=== PATIENT | male | born 1990 | race Caucasian/White ===

== ENCOUNTER 2016-11-05 17:32 | Observation (INO) ==
[2016-11-05 18:03] LABS: URINE CULTURE NEEDED? NO; URINE MICRO REVIEW NEEDED? NO; URINE SOURCE CLEAN CATCH
[2016-11-05 18:07] LABS: BILIRUBIN URINE NEGATIVE (NEGATIVE); BLOOD URINE NEGATIVE (NEGATIVE); COLOR YELLOW; GLUCOSE URINE NEGATIVE (NEGATIVE); LEUKOCYTES URINE NEGATIVE (NEGATIVE); NITRITE URINE NEGATIVE (NEGATIVE); PH URINE 6.5; PROTEIN URINE TRACE mg/dL (NEGATIVE); SP GRAVITY URINE 1.026; TURBIDITY URINE CLEAR (CLEAR); UROBILINOGEN URINE 2 mg/dL (NORMAL)
[2016-11-05 18:08] LABS: UR EPITHELIAL CELLS <10 /HPF (<10); URINE BACTERIA NEGATIVE /HPF; URINE RBC <10 /HPF (<10); URINE WBC <10 /HPF (<10)
[2016-11-05 18:16] LABS: MANUAL DIFF NEEDED? NO
[2016-11-05 18:23] LABS: BASO% 0.2 % (0.0-0.8); EOS# 0.13 X1000 (0.0-0.7); EOS% 1.5 % (0.0-10.0); HEMATOCRIT 46.7 % (42.0-52.0); HEMOGLOBIN 15.7 g/dL (14.0-18.0); IMM GRAN# 0.02 X1000 (0.0-0.04); IMM GRAN% 0.2 % (0.0-0.5); LYMPH# 1.85 X1000 (1.2-3.4); LYMPH% 21.3 % (20.5-51.1); MCH 28.4 PG (27-31); MCHC 33.6 g/dL (33-37); MCV 84.6 FL (81-99); MONO# 0.58 X1000 (0.11-0.59); MONO% 6.7 % (1.7-9.3); MPV 12.1 FL (7.4-10.4); NEUT% 70.1 % (42.2-75.2); PLT 174 X1000 (130-400); RBC 5.52 XMIL (4.7-6.1)
[2016-11-05 18:32] LABS: UR AMPHETAMINES QUAL NONE DETECTED (NONE DETECT); UR BARBITUATES QUAL NONE DETECTED (NONE DETECT); UR BENZODIAZEPIN QUAL NONE DETECTED (NONE DETECT); UR CANNABINOIDS QUAL PRESUMPTIVE POSITIVE (NONE DETECT); UR COCAINE QUAL NONE DETECTED (NONE DETECT); UR METHADONE QUAL NONE DETECTED (NONE DETECT); UR OPIATES QUAL NONE DETECTED (NONE DETECT); UR OXYCODONE QUAL NONE DETECTED (NONE DETECT); UR PCP QUAL NONE DETECTED (NONE DETECT)
[2016-11-05 18:35] LABS: AGAP 12; ALBUMIN 4.1 g/dL (3.5-5.0); ALKALINE PHOSPHATASE 63 U/L (32-122); BUN 13 mg/dL (8-22); CALCIUM 9.1 mg/dL (8.8-10.2); CHLORIDE 102 mmol/L (98-107); COSMO 279; GOT 40 U/L (10-34); GPT 90 U/L (10-44); SODIUM 140 mmol/L (136-145); TCO2 26 mmol/L (25-35); TOTAL BILIRUBIN 0.42 mg/dL (0.20-1.00); TOTAL PROTEIN 7.4 g/dL (6.3-8.3)
--- NOTE | 2016-11-05 18:40 | Diag Imaging Result Doc PS360 ---
EXAM: CERVICAL SPINE W/O CONTRAST HISTORY: tried hanging himself TECHNIQUE: CT of the cervical spine COMMENT: There is no evidence of fracture or subluxation. No prevertebral soft tissue swelling is present. The facets are aligned. There is no evidence of spinal or foraminal stenosis. IMPRESSION: No evidence of acute bony disease. Electronically signed by Saturnino Walker 11/05/2016 6:37 PM
[2016-11-05 18:53] LABS: FREE T4 0.81 ng/dL (0.93-1.70)
[2016-11-05 19:26] LABS: ACETAMINOPHEN < 1.2 ug/mL (10-30)
--- NOTE | 2016-11-05 20:00 | PROVIDER DOCUMENTATION ---
This chart was entered by Bell Napoles Scribe, acting as scribe for Hemanth Sheldon CRNP. HPI-Psychological Disorder - General Chief Complaint: Suicide Attempt Stated Complaint: suicidal thoughts/attempt Time Seen by Provider: 11/05/16 17:51 Allergies/Adverse Reactions: Patient Allergies Allergy/AdvReac Type Severity Reaction Status Date / Time No Known Allergies Allergy Verified 11/05/16 19:33 Home Medications: Home Medication List Medication Instructions Recorded Confirmed Last Taken Type NK [No Home Medications] 11/05/16 11/05/16 Unknown History - History of Present Illness-Psych Nature of Presenting Problem: Pt is 26 y/o M presents to the ED via EMS with SI and SI attempt. Pt states tried to hang himself today and drank ortho home defense. Pt states recent family stress. Pt denies HI. Pt does have auditory and visual hallucinations since his step father . He sees and stalks to him on a daily basis. Onset/Duration: reports: just prior to arrival Timing: reports: still present Severity: reports: moderate Situational problems related to:: reports: spouse, parent Psychiatric Complaints: reports: depressed, suicidal ideation. denies: angry, agitated, altered mental status, anxiety, confused, frustrated, hallucinating, hostile, homicidal thoughts, impaired concentration, ingestion, injury, insomnia , irritability, paranoid, , rapid pulse, restlessness, tremor Substance Use: reports: denies Previous psych related hospitalizations?: No Patient arrived by:: EMS called by spouse/family Similar Symptoms Previously?: Yes Recently seen or treated by another doctor?: No - Suicidal Ideation Suicidal Attempt Method: reports: Hanging, Other (drank insecticide (Ortho Home Defense)) Review of Systems - Adult - REVIEW OF SYSTEMS - ADULT Constitutional: reports: see HPI. denies: chills, fever Eyes: denies: blurred vision, double vision, redness Ears, Nose, Mouth & Throat: denies: ear pain, nose pain, throat pain Cardiovascular: denies: chest pain, heart murmur, irregular heart rate Respiratory: denies: cough, shortness of breath, wheezing Gastrointestinal: denies: abdominal pain, diarrhea, nausea, vomiting Genitourinary: denies: dysuria, flank pain, hematuria Musculoskeletal: denies: back pain, joint pain, neck pain Integumentary: denies: hives, itching, rash Neurological: denies: dizziness/vertigo, headache/migraines, syncope Psychiatric: reports: depression, suicidal thoughts. denies: anxiety Endocrine: reports: no symptoms reported Hematologic/Lymphatic: reports: no symptoms reported Allergic/Immunologic: reports: no symptoms reported All Other Systems: Reviewed and Negative Past History - Adult - PAST MEDICAL HISTORY-ADULT Review of Records: reports: Old Records Reviewed, Nursing Assessment Review, Medications Reviewed, Social history reviewed & non-contributory. Major Childhood Illnesses: reports: denies history Cardiovascular: reports: denies history Respiratory: reports: denies history Gastrointestinal: reports: denies history Obstetrical/Gynecological: reports: denies history Genitourinary: reports: denies history Musculoskeletal: reports: denies history Neurological: reports: denies history Endocrine/Immune: reports: denies history Other Conditions: reports: denies history - PRIOR SURGERIES/PROCEDURES Surgical/Procedure History: reports: reviewed, not pertinent - IMMUNIZATION STATUS Childhood Immunizations: See Nurse Assessment Flu Vaccine: See Nurse Assessment - FAMILY HISTORY Family History: reviewed, not pertinent - SOCIAL HISTORY Smoking: denies Substance Use: marijuana Physical Exam-Psych Focus - Physical Exam-Psych Initial Vital Signs Reviewed: Yes Appearance: no apparent distress, alert. negative: disheveled, lethargic Neurological: calm, oriented x 3. negative: anxious, flat Behavior/Eye Contact/Speech: cooperative, good eye contact. negative: refused to answer, belligerent, compulsive, uncooperative Thoughts/Hallucinations: normal thought pattern, no apparent hallucination. negative: auditory hallucinations, tactile hallucinations, visual hallucinations HENMT: normocephalic/atraumatic, moist mucous membranes, normal ENT inspection. negative: dental decay, pharyngeal erythema Neck: non-tender, normal inspection. negative: lymphadenopathy, tender lateral Respiratory: chest non-tender, lungs clear, normal breath sounds. negative: crackles, rhonchi, increased rate Cardiovascular: normal peripheral pulses, regular rate, rhythm. negative: tachycardia, systolic murmur Abdominal Exam: normal bowel sounds, non tender, soft. negative: distended, rebound, hernia Lymphatic: no adenopathy. negative: enlargement, streaking Back Exam: normal inspection, no CVA tenderness, no vertebral tenderness. negative: ecchymosis, swelling Extremity: normal range of motion, normal inspection. negative: deformity, erythema, swelling Integumentary: normal color, normal turgor, warm/dry. negative: erythema, pallor, rash Progress - PLAN OF CARE/RESULTS Progress/Plan/Lab Results: Vital Signs - 8 hr 11/05/16 17:38 Temperature 98.1 F Pulse Rate 76 Respiratory Rate 18 Blood Pressure 141/78 O2 Sat by Pulse Oximetry 98 Laboratory Results - last 24 hr 11/05/16 11/05/16 11/05/16 17:56 17:56 18:03 WBC 8.70 RBC 5.52 Hgb 15.7 Hct 46.7 MCV 84.6 MCH 28.4 MCHC 33.6 RDW Std Deviation 13.7 Plt Count 174 MPV 12.1 H Immature Gran % (Auto) 0.2 Neut % (Auto) 70.1 Lymph % (Auto) 21.3 [place] % (Auto) 6.7 Eos % (Auto) 1.5 Baso % (Auto) 0.2 Immature Gran # (Auto) 0.02 Neut # (Auto) 6.10 Lymph # (Auto) 1.85 [place] # (Auto) 0.58 Eos # (Auto) 0.13 Baso # (Auto) 0.02 Sodium Potassium Chloride Carbon Dioxide Anion Gap BUN Creatinine Estimated GFR/1.73 m2 BUN/Creatinine Ratio Glucose Calculated Osmolality Calcium Total Bilirubin AST ALT Alkaline Phosphatase Total Protein Albumin Globulin Albumin/Globulin Ratio Vitamin B12 TSH Free T4 Urine Source CLEAN CATCH Urine Color YELLOW Urine Turbidity CLEAR Urine pH 6.5 Ur Specific Zenda 1.026 Urine Protein TRACE A Ur Glucose (Stick) NEGATIVE Ur Ketones (Stick) NEGATIVE Urine Blood NEGATIVE Urine Nitrite NEGATIVE Urine Bilirubin NEGATIVE Urobilinogen Dipstick 2 A Urine Leukocytes NEGATIVE Urine WBC (Auto) <10 Urine RBC (Auto) <10 U Epithel Cells (Auto) <10 Urine Bacteria (Auto) NEGATIVE Salicylates Urine Opiates Screen NONE DETECTED Ur Oxycodone Screen NONE DETECTED Ur Methadone, Qual NONE DETECTED Acetaminophen Ur Barbiturates Screen NONE DETECTED Ur Phencyclidine Scrn NONE DETECTED Ur Amphetamines Screen NONE DETECTED U Benzodiazepines Scrn NONE DETECTED Urine Cocaine Screen NONE DETECTED U Cannabinoids Screen PRESUMPTIVE POSITIVE A 11/05/16 11/05/16 11/05/16 18:03 18:03 18:22 WBC RBC Hgb Hct MCV MCH MCHC RDW Std Deviation Plt Count MPV Immature Gran % (Auto) Neut % (Auto) Lymph % (Auto) [place] % (Auto) Eos % (Auto) Baso % (Auto) Immature Gran # (Auto) Neut # (Auto) Lymph # (Auto) [place] # (Auto) Eos # (Auto) Baso # (Auto) Sodium 140 Potassium 4.0 Chloride 102 Carbon Dioxide 26 Anion Gap 12 BUN 13 Creatinine 0.9 Estimated GFR/1.73 m2 > 60 BUN/Creatinine Ratio 14 Glucose 98 Calculated Osmolality 279 Calcium 9.1 Total Bilirubin 0.42 AST 40 H ALT 90 H Alkaline Phosphatase 63 Total Protein 7.4 Albumin 4.1 Globulin 3.3 Albumin/Globulin Ratio 1.2 Vitamin B12 482 TSH 12.94 H Free T4 0.81 L Urine Source Urine Color Urine Turbidity Urine pH Ur Specific Zenda Urine Protein Ur Glucose (Stick) Ur Ketones (Stick) Urine Blood Urine Nitrite Urine Bilirubin Urobilinogen Dipstick Urine Leukocytes Urine WBC (Auto) Urine RBC (Auto) U Epithel Cells (Auto) Urine Bacteria (Auto) Salicylates < 3.00 L Urine Opiates Screen Ur Oxycodone Screen Ur Methadone, Qual Acetaminophen < 1.2 L Ur Barbiturates Screen Ur Phencyclidine Scrn Ur Amphetamines Screen U Benzodiazepines Scrn Urine Cocaine Screen U Cannabinoids Screen Orders Category Date Time Status IV Insertion ORDERED Care 11/05/16 18:09 Completed Nursing- Obtain EKG once Care 11/05/16 18:10 Active CERVICAL SPINE W/O CONTRAST [CT] Stat Exams 11/05/16 18:15 Completed ACETAMINOPHEN [TDM] Stat Lab 11/05/16 18:22 Completed ALCOHOL BLOOD Stat Lab 11/05/16 18:03 Received CBC WITH ELECTRONIC DIFF [HEME] Stat Lab 11/05/16 18:03 Completed COMPREHENSIVE METABOLIC PANEL [CHEM] Stat Lab 11/05/16 18:03 Completed FREE T4 Stat Lab 11/05/16 18:03 Completed SALICYLATES [TDM] Stat Lab 11/05/16 18:22 Completed TSH Stat Lab 11/05/16 18:03 Completed UA NIMS W/REFLEX CULT [URINALYSIS] Stat Lab 11/05/16 18:22 Ordered URINALYSIS W/POSS RFLX CULT-1 [URINALYSIS] Stat Lab 11/05/16 17:56 Completed URINE DRUG SCREEN Stat Lab 11/05/16 17:56 Completed URINE DRUG SCREEN Stat Lab 11/05/16 18:22 Ordered VITAMIN B12 Stat Lab 11/05/16 18:03 Completed Result Diagrams: 11/05/16 18:03 11/05/16 18:03 - CT/MRI 1 CT Study: Cervical Spine Impression: Normal (Per radiologist.) - CONSULTS/PCP/HOSPITALIST Notification #1 *Consult/PCP/Hospitalist*: Dr. Bridges Time Discussed: 18:31 Consult Disposition: Will see in ED, Admit Departure - Departure Date of Disposition Decision: 11/05/16 Time of Disposition Decision: 18:32 DIAGNOSIS: Suicidal ideations, Ingestion of corrosive chemical, Hallucinations, unspecified Disposition: ADMITTED INPATIENT 09 Certified Medical Emergency: Emergent Condition: Stable Referrals and Follow-Ups: None,PCP [Primary Care Provider] - - Critical Care Note This patient required my direct & personal management of CC.: No Attestation - Physician/ HERMILO Attestation Patient care was provided by Advanced Practice Provider:: Yes Advanced Practice Provider:: Hemanth Sheldon Advanced Practice Provider documentation review:: The Mid-level provider documentation, treatment plan and medical decision making was reviewed by the physician who agrees with all treatment and medical decision making by the MLP. The physician spent face to face time with patient:: Yes Advanced Practice Provider documentation review:: Supervising physician onsite and consulted in the evaluation and care of this patient. The physician did have a face to face encounter with the patient. This chart was documented by the indicated scribe, (Bell Napoles Scribe) and accurately reflects the services I performed and decisions made by me, Hemanth Sheldon CRNP, as attested by the provider's signature.
[2016-11-05] MEDS ORDERED: TYLENOL PO ONE (20:53)
[2016-11-05] MEDS ORDERED: TYLENOL PO PRN (22:35)
[2016-11-05] MEDS ORDERED: ZOFRAN PO PRN (22:35)
[2016-11-05] MEDS ORDERED: ZOFRAN ODT PO PRN (22:41)
[2016-11-05] MEDS: NS 1,000 ML IV SCH (23:25)
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
[2016-11-06 05:36] LABS: MANUAL DIFF NEEDED? NO
[2016-11-06 05:43] LABS: BASO% 0.7 % (0.0-0.8); EOS# 0.18 X1000 (0.0-0.7); EOS% 2.7 % (0.0-10.0); HEMATOCRIT 45.2 % (42.0-52.0); IMM GRAN# 0.02 X1000 (0.0-0.04); IMM GRAN% 0.3 % (0.0-0.5); LYMPH# 2.75 X1000 (1.2-3.4); MCH 28.7 PG (27-31); MCHC 33.2 g/dL (33-37); MCV 86.4 FL (81-99); MONO# 0.62 X1000 (0.11-0.59); MONO% 9.3 % (1.7-9.3); MPV 12.5 FL (7.4-10.4); PLT 152 X1000 (130-400); RBC 5.23 XMIL (4.7-6.1)
[2016-11-06 06:05] LABS: AGAP 11; ALBUMIN 4.1 g/dL (3.5-5.0); ALKALINE PHOSPHATASE 60 U/L (32-122); BUN 12 mg/dL (8-22); CALCIUM 8.8 mg/dL (8.8-10.2); CHLORIDE 105 mmol/L (98-107); COSMO 281; GOT 41 U/L (10-34); GPT 82 U/L (10-44); MAGNESIUM 1.9 mg/dL (1.5-2.7); POTASSIUM 3.7 mmol/L (3.5-5.1); SODIUM 141 mmol/L (136-145); TCO2 25 mmol/L (25-35); TOTAL BILIRUBIN 0.49 mg/dL (0.20-1.00)
--- NOTE | 2016-11-06 07:27 | EKG Report ---
Test Performed on : 11/06/2016 06:36:50 AM Test Reason : Ingestion, Suicide Attempt Blood Pressure : / mmHG Vent. Rate : 056 BPM Atrial Rate : 056 BPM P-R Int : 156 ms QRS Dur : 090 ms QT Int : 410 ms P-R-T Axes : 043 -03 025 degrees QTc Int : 395 ms Sinus bradycardia. with marked sinus arrhythmia. Otherwise normal ECG When compared with ECG of 05-NOV-2016 18:00, (Unconfirmed) No significant change was found Nonspecific T wave abnormality III Confirmed by Zain Sampson DO ([id number]) on 11/09/2016 7:04:47 AM
[2016-11-06] MEDS: NS 1,000 ML IV SCH ×2 (07:45→15:58)
--- NOTE | 2016-11-06 07:48 | EKG Report ---
Test Performed on : 11/05/2016 6:00:45 PM Test Reason : No Order in [employer] Blood Pressure : / mmHG Vent. Rate : 078 BPM Atrial Rate : 078 BPM P-R Int : 154 ms QRS Dur : 090 ms QT Int : 356 ms P-R-T Axes : 033 -13 019 degrees QTc Int : 405 ms Normal sinus rhythm. Cannot rule out Anterior infarct , age undetermined Abnormal ECG No previous ECGs available Unconfirmed Result
[2016-11-06] MEDS ORDERED: ZOVIRAX PO SCH (09:00)
[2016-11-06] MEDS: SYNTHROID PO SCH (12:17)
--- NOTE | 2016-11-06 12:19 | PROGRESS NOTE ---
DATE: 11/06/2016 SUBJECTIVE: This morning, Mr. Batista refers to be doing a lot better. According to him, he was extremely depressed and had a lot of issues going on in his mind and his life, so he thought this was the end of the road. He took about a glass of come about a glass of Ortho Narus Defense to kill himself. Yesterday I understand was hallucinating and being delusional. However, this morning he sustains very rational conversation and he says he is regretful and he does not plan to do that again. OBJECTIVE: Vital signs: Blood pressure is 119/77, pulse of 59, respirations 14 , temperature is 98.7 degrees. General: Mr. Batista is a 66-year-old male. He is in bed, does not seem to be in any remarkable distress. HEENT: Mucosa is pink and moist. Anicteric. Acyanotic. Neck: Supple. Chest: Good air entry bilateral. No crepitations. No rhonchi. Cardiovascular: Regular rate and rhythm. There are no murmurs, no rubs, no gallops. Abdomen: Distended but nontender. Bowel sounds are present. Extremities: No pedal edema. 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 There is no focal neurological deficit. Psych: Patient is very thoughtful to the responses of questions but he denies being suicidal and denies any hallucinations or delusional ideations. LABORATORY DATA: WBC is 6.70, hemoglobin is 15.0, platelet count is 152,000. Chemistry is reviewed and completely unremarkable. AST is 41, ALT is 82. TSH is 12.94, free T4 is 0.81. ASSESSMENT: 1. Suicidal attempt with ortho defense product, which was an insecticide. Poison Control has been notified and they recommend 12 hours observation. 2. Relative bradycardia with premature ventricular contractions. This was mainly when patient was sleeping but could be side effects of the substance. The patient will continue with telemetry monitoring. 3. Hypothyroidism. Patient is known to have thyroid problems but was not taking any medications. We are going to start him on levothyroxine at 150 mcg daily. The patient will need to recheck on his TSH in 2 weeks. 4. Auditory hallucinations and delusional ideation, resolved. 5. Scaly recurrent rash on his scrotum and right eye. I think this seems more of an inflammatory dermatosis but not herpes. I will go ahead and discontinue the acyclovir. Patient has been advised to follow up with a machine builder so that they will probably biopsy this to rule out any inflammatory dermatosis vs other skin pathologies. PLAN: So in general, I think Mr. Batista is doing fine. We are going to consult psych to evaluate him. Hopefully after the 12 hour recommended period if patient continues to be medically stable he will be discharged, either to an inpatient psych facility or home depending on psych evaluation. cc: Carlos Batista MD MTDD
[2016-11-07] MEDS: SYNTHROID PO SCH (06:03)
[2016-11-07 08:26] LABS: MANUAL DIFF NEEDED? NO
[2016-11-07 08:32] LABS: BASO% 0.4 % (0.0-0.8); EOS# 0.23 X1000 (0.0-0.7); EOS% 3.4 % (0.0-10.0); HEMATOCRIT 45.6 % (42.0-52.0); HEMOGLOBIN 15.3 g/dL (14.0-18.0); IMM GRAN# 0.02 X1000 (0.0-0.04); IMM GRAN% 0.3 % (0.0-0.5); LYMPH# 2.21 X1000 (1.2-3.4); LYMPH% 32.2 % (20.5-51.1); MCH 28.7 PG (27-31); MCHC 33.6 g/dL (33-37); MCV 85.4 FL (81-99); MONO# 0.49 X1000 (0.11-0.59); MONO% 7.1 % (1.7-9.3); MPV 12.1 FL (7.4-10.4); NEUT% 56.6 % (42.2-75.2); PLT 160 X1000 (130-400); RBC 5.34 XMIL (4.7-6.1)
[2016-11-07 10:18] LABS: AGAP 12; ALBUMIN 3.6 g/dL (3.5-5.0); ALKALINE PHOSPHATASE 58 U/L (32-122); BUN 9 mg/dL (8-22); CALCIUM 9.5 mg/dL (8.8-10.2); CHLORIDE 104 mmol/L (98-107); COSMO 282; GOT 53 U/L (10-34); GPT 98 U/L (10-44); POTASSIUM 4.3 mmol/L (3.5-5.1); SODIUM 142 mmol/L (136-145); TCO2 26 mmol/L (25-35); TOTAL BILIRUBIN 0.61 mg/dL (0.20-1.00); TOTAL PROTEIN 6.8 g/dL (6.3-8.3)
--- NOTE | 2016-11-07 10:21 | PROGRESS NOTE ---
DATE: 11/07/2016 SUBJECTIVE: Today, Mr. Batista referred to be doing fine. Denies any hallucinations or delusional thoughts, and no suicidal ideations. OBJECTIVE: Vital Signs: Blood pressure is 129/84, pulse of 53, respirations 16 , temperature is 98.0 degrees, the patient is saturating 99% on room air. General: Mr. Batista is a 26-year- old male. He is in bed, does not seem to be in any remarkable distress. HEENT: Mucosa is pink and moist. Anicteric. Acyanotic. Neck: Supple. Chest: Clear. Cardiovascular: Regular rate and rhythm. There are no murmurs, no rubs, no gallops. Abdomen: Soft, nontender. Extremities: No pedal edema. CUPOLA TAPPER: The patient is awake and alert and oriented x4. There is no focal neurological deficit. The patient is more interactive today than yesterday. Denies any suicidal ideation, and no hallucinations or delusions. LABORATORY DATA: CBC is reviewed, completely normal. Chemistry is reviewed, unremarkable. Liver enzymes stable. ASSESSMENT: 1. Suicidal attempt with [employer] product (an insecticide). Poison Control has been notified. The patient has been observed over 12 hours. Clinically stable, and could be discharged. However, because of the suicidal attempt, Sean Tapia has been consulted, and the patient has been recommended an inpatient Psychiatry admission. He is currently under court hold for 48 hours. 2. Hypothyroidism. The patient has been started on levothyroxine. 3. Auditory hallucination and delusion ideations, resolved. 4. Major depressive disorder. 5. Scaly dermatosis on scrotum and on eyelid noted. 6. Morbid obesity with body mass index of 51. 7. Mild transaminitis. Not sure if this is related to the drug side effects or could be steatohepatitis because of the patient's obesity. We will do an ultrasound of the liver, and also hepatitis screening just to have a baseline. cc: Carlos Batista MD MTDAlfonzo
[2016-11-07 13:13] VITALS: BP 128/70
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
[2016-11-08 13:25] LABS: HEPATITIS PROFILE ACUTE SEE COMMENTS
--- NOTE | 2017-01-07 14:18 | ED EKG INTERP ---
This chart was entered by Chuck Sage Scribe, acting as scribe for Hemanth Roberts MD. EKG Interpretation - EKG Time of EKG reading by physician:: 18:00 EKG Read and Signed by:: Hemanth Roberts EKG Interpretation (*Must complete 3 of following elements*): Abnormal (Cannot rule out Anterior infarct, age undetermined) Rate: 78 Rhythm: NSR Attestation - Physician/ HERMILO Attestation Patient care was provided by Advanced Practice Provider:: Yes Advanced Practice Provider documentation review:: The Mid-level provider documentation, treatment plan and medical decision making was reviewed by the physician who agrees with all treatment and medical decision making by the MLP. The physician spent face to face time with patient:: No Advanced Practice Provider documentation review:: Supervising physician onsite and consulted in the evaluation and care of this patient. The physician did not have a face to face encounter with the patient. This chart was documented by the indicated scribe, (Chuck Sage Scribe) and accurately reflects the services I performed and decisions made by me, Hemanth Roberts MD, as attested by the provider's signature.
== END 2016-11-07 12:55 ==
LOC: ICU 17:32 → ED 17:32 → SUATTDRO 21:04 → ICU 22:48
PROVIDERS: ATTEND Internal Medicine